=== PATIENT | male | born 1990 | race Caucasian/White ===

== ENCOUNTER 2020-03-20 08:00 | Emergency (ER) | payer MEDICAID ==
[2020-03-20] MEDS ORDERED: EPINEPHrine Nasal Soln 30 MG/30 ML Bottle NAS ONE (08:10)
[2020-03-20] MEDS ORDERED: Oxymetazoline 0.05% Nasal Spray 30 ML Bottle NAS ONE (08:10)
--- NOTE | 2020-03-20 08:30 | EDM.PDOC ---
ED HPI GENERAL MEDICAL PROBLEM - General Stated Complaint: NOSEBLEED Time Seen by Provider: 03/20/20 08:15 Source of Information: Reports: Patient, RN, RN Notes Reviewed History Limitations: Reports: No Limitations - History of Present Illness INITIAL COMMENTS - FREE TEXT/NARRATIVE: Patient presents to the ED via personal vehicle with complaints of epistaxis. He reports the bleeding began in his left nare at 0630 while he was blowing his nose. He states he feels the bleeding moved from the left nare to the right nare for some time, but now it is just bleeding from the left nare. He denies any recent trauma to the area. He states he has attempted applying pressure to the area, but it has not slowed or stopped the bleeding. The patient states he takes a daily ASA 81mg as his D-dimer was elevated due to a recent COVID infection; he did take this medication this morning. He states he spoke with his primary care provider, Felicita Tiwari, this morning who instructed him to hold his aspirin for the time being. - Related Data Allergies Allergy/AdvReac Type Severity Reaction Status Date / Time No Known Allergies Allergy Verified 03/20/20 08:37 Home Meds: Home Meds Aspirin [Aspirin EC] 325 mg PO DAILY 03/20/20 [History] cephALEXin [Cephalexin] 500 mg PO ASDIRECTED 03/20/20 [History] hydroCHLOROthiazide [Hydrochlorothiazide] 25 mg PO DAILY 03/20/20 [History] ED ROS GENERAL - Review of Systems Review Of Systems: Comprehensive ROS is negative, except as noted in HPI. ED EXAM, GENERAL - Physical Exam Exam: See Below Exam Limited By: No Limitations General Appearance: Alert, WD/WN, Anxious, Mild Distress Eye Exam: Bilateral Eye: EOMI, Normal Inspection, PERRL Nose: Other (Active, lisbeth blood from left nare). No: Nasal Tenderness, Nasal Deformity, Nasal Swelling Throat/Mouth: Normal Inspection, Normal Lips, Normal Teeth, Normal Oropharynx, N ormal Voice, No Airway Compromise Head: Atraumatic, Normocephalic Neurological: Oriented, CN II-XII Intact, Normal Cognition, Normal Gait, No Motor/Sensory Deficits Psychiatric: Anxious Skin Exam: Warm, Dry, Intact, Normal Color, No Rash. No: Ecchymosis, Erythema, Mottled, Pallor, Petechiae Course - Vital Signs Last Recorded V/S: Last Vital Signs Temp 96.4 F L 03/20/20 08:03 Pulse 139 H 03/20/20 08:03 Resp 18 03/20/20 08:03 BP 134/91 H 03/20/20 08:03 Pulse Ox 100 03/20/20 08:03 - Orders/Labs/Meds Meds: Medications Discontinued Medications Generic Name Dose Route Start Last Admin Trade Name Jenn PRN Reason Stop Dose Admin Epinephrine HCl 0.5 mg 03/20/20 08:10 03/20/20 08:32 Adrenalin Nasal Soln ROSA MARIA 03/20/20 08:11 0.5 mg ONETIME ONE Administration Oxymetazoline HCl 0 ml 03/20/20 08:10 03/20/20 08:33 Nasal Decongestant Breaks ROSA MARIA 03/20/20 08:11 30 ml ONETIME ONE Administration - Re-Assessments/Exams Free Text/Narrative Re-Assessment/Exam: 03/20/20 08:33 Patient resting comfortably following the administration of Afrin with Epi. Nose bleed did not restart following administration of medications. Will discharge patient home with instructions regarding prevention of epistaxis, including humidified air and avoiding trauma to the area. Patient verbalized understanding and agreement with the plan of care. Departure - Departure Time of Disposition: 08:56 Disposition: Home, Self-Care 01 Condition: Good Clinical Impression: Epistaxis - Discharge Information *PRESCRIPTION DRUG MONITORING PROGRAM REVIEWED*: Not Applicable *COPY OF PRESCRIPTION DRUG MONITORING REPORT IN PATIENT BUCK: Not Applicable Instructions: Nosebleed, [id number] Additional Instructions: Sleep with humidified air at night. Avoid intranasal medications, such as Afrin or Flonase. Continue with holding Aspirin 81mg, as per primary care provider, until follow- up. Sepsis Event Note (ED) - Focused Exam Vital Signs: Vital Signs Temp Pulse Resp BP Pulse Ox 03/20/20 08:03 96.4 F L 139 H 18 134/91 H 100
== END 2020-03-20 09:24 | disposition home or self-care (01) ==
LOC: DL.ED 08:00
DX: R04.0 Epistaxis (principal); Z79.82 Long term (current) use of aspirin; Z79.899 Other long term (current) drug therapy
CPT/HCPCS: 99283; A9270